=== PATIENT | male | born 1980 | race Caucasian/White ===

== ENCOUNTER → 2016-08-22 | Outpatient (CLI) | payer OTHER ==
[~2016-08-22] MED LIST: ALBUTEROL17 GM; EPITOL PO; KEPPRA500 M2 PO; PRILOSEC PO; TEGRETOL PO; TOPAMAX PO; ZANTAC PO; ZOFRAN PO
--- NOTE | ~2016-08-22 | EE ---
Unit #: [id number] #: [id number] Patient: KATIANA ALEX [id number] [address] [address] [id number] O MR#: [id number] NAME: KATIANA ALEX : 1980 SEX: M STUDY DATE/TIME: 08/22/2016 UNIT: [facility] ROOM: STUDY DESCRIPTION: EEG Attending Physician: Dieudonne Moon II., M.D. Referring Physician: Dieudonne Moon II., M.D. Primary Care Physician: Avery Quintero M.D. NEURODIAGNOSTICS REPORT EXAM EEG. [facility]. REASON FOR STUDY Seizures. TECHNICAL INFORMATION This is a routine EEG performed using the standard international 10-20 system of electrode placement. Photic stimulation was performed. Hyperventilation was also performed. REPORT Throughout the entire study, the best background rhythm seen was approximately 10 Hz to 11 Hz. This rhythm is seen in both posterior head regions symmetrically and does attenuate to eye opening and closure. Hyperventilation was performed, which failed to reproduce any abnormal buildup. Photic stimulation was also performed, which did not elicit any epileptiform abnormalities; however, a good photic driving response was seen. There was no sleep recorded during the EEG. Throughout the entire study there were no electrographic seizures recorded, nor were there any independent epileptiform abnormalities seen. INTERPRETATION This is a normal awake EEG. A normal EEG does not rule out the possibility of a seizure disorder. Clinical correlation is advised. Dictated by... Dieudonne Moon II., M.D. GWS/grzegorz TD: 08/24/2016 08:40 JOB #: [id number] Unit #: [id number] #: [id number] Patient: KATIANA ALEX NEURODIAGNOSTICS REPORT X NEURODIAGNOSTICS REPORT
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
== END | disposition home or self-care (01) ==
LOC: CMRI 08:56
DX: R56.9 Unspecified convulsions (principal); G93.89 Other specified disorders of brain
CPT/HCPCS: 70553; 95816; A9577